=== PATIENT | female | born 1970 ===

== ENCOUNTER 2019-06-25 14:46 | Inpatient (IN) | payer OTHER ==
[~2019-06-25] VITALS: Ht 170.2 cm; Wt 54.4 kg
[2019-06-25 16:30] VITALS: BP 114/74
[2019-06-25] MEDS ORDERED: TRAZ-184 PO (16:38)
[2019-06-25] MEDS ORDERED: ONDA-104 PO (16:38)
[2019-06-25] MEDS ORDERED: HYDR-3290 PO (16:38)
[2019-06-25] MEDS ORDERED: LOPERAMIDE HCL 2 MG CAPSULE PO PRN (17:30)
[2019-06-25] MEDS ORDERED: NICOTINE 14 MG/24 HOUR PATCH TD PRN (17:30)
[2019-06-25] MEDS ORDERED: CloNIDine HCL 0.1 MG TABLET PO PRN (17:30)
[2019-06-25] MEDS ORDERED: MAG HYDROX/AL HYDROX/SIMETH ES 30 ML SUSPENSION UDCUP PO PRN (17:30)
[2019-06-25] MEDS ORDERED: MAGNESIUM HYDROXIDE SUSPENSION 30 ML UDCUP PO PRN (17:30)
[2019-06-25] MEDS ORDERED: PETROLATUM,WHITE 28 GM JELLY TP PRN (17:30)
[2019-06-25] MEDS ORDERED: IBUPROFEN 400 MG TABLET PO PRN (17:30)
[2019-06-25] MEDS ORDERED: ACETAMINOPHEN 325 MG TABLET PO PRN (17:30)
[2019-06-25] MEDS ORDERED: GuaiFENesin/D-METHORPHAN [SUGAR-FREE] 200-20MG/10 ML SYRUP UDCUP PO PRN (17:30)
[2019-06-25] MEDS ORDERED: ALBUTEROL SULFATE HFA 90 MCG/PUFF 8 GM INHALER IH PRN (17:30)
[2019-06-25 17:38] VITALS: BP 118/72
[2019-06-25] MEDS ORDERED: *PATIENT'S OWN MED [ENTER DRUG, DOSE, FREQUENCY IN COMMENTS] CLINICAL ONE (19:45)
[2019-06-25] MEDS: LORazepam 2 MG TABLET PO PRN (19:57)
[2019-06-25] MEDS ORDERED: ETHINYL ESTRADIOL PO ONE (20:00)
[2019-06-25] MEDS ORDERED: NORETHINDRONE PO ONE (20:00)
[2019-06-25 20:28] VITALS: BP 117/64
[2019-06-25] MEDS: HYDROCODONE/ACETAMINOPHEN 5-325 MG TABLET PO PRN (20:28)
[2019-06-25] MEDS: MELOXICAM 7.5 MG TABLET PO SCH (20:55)
[2019-06-25] MEDS ORDERED: GABAPENTIN 300 MG CAPSULE PO SCH (21:00)
[2019-06-26 05:06] VITALS: BP 103/60
[2019-06-26 08:02] LABS: BASOPHILS % (AUTO) 0.4 % (0.0-2.0); HEMATOCRIT 36.3 % (36-46); HEMOGLOBIN 12.1 g/dL (12.0-16.0); LYMPHOCYTES # (AUTO) 2.6 K/uL (1.0-4.8); LYMPHOCYTES % (AUTO) 35.3 % (22.0-44.0); MEAN CORPUSCULAR HEMOGLOBIN 32.8 pg (26.0-34.0); MEAN CORPUSCULAR HGB CONC 33.3 G/dL (31.0-37.0); MEAN CORPUSCULAR VOLUME 99 fL (80-100); MONOCYTES # (AUTO) 0.5 K/uL (0.1-1.0); MONOCYTES % (AUTO) 6.6 % (2.0-9.0); NEUTROPHILS % (AUTO) 54.7 % (40.0-70.0); PLATELET COUNT (AUTO) 240 K/uL (150-450); RED BLOOD CELL COUNT(AUTO) 3.68 MIL/uL (4.00-5.20); RED CELL DISTRIBUTION WIDTH 14.5 % (11.5-14.5)
[2019-06-26 08:18] LABS: APPEARANCE,URINE CLEAR (CLEAR); BILIRUBIN,URINE NEGATIVE (NEGATIVE); GLUCOSE, URINE (UA) NEGATIVE (NEGATIVE); KETONES,URINE NEGATIVE (NEGATIVE); LEUKOCYTE ESTERASE ,URINE NEGATIVE (NEGATIVE); NITRATE,URINE NEGATIVE (NEGATIVE); OCCULT BLOOD,URINE NEGATIVE (NEGATIVE); PH,URINE 5.5 (5.0-8.0); PROTEIN,URINE NEGATIVE (NEGATIVE); UROBILINOGEN,URINE 0.2 mg/dL (<=1.0)
[2019-06-26 08:26] LABS: AMPHET/METH SCREEN,URINE NEGATIVE (NEGATIVE); BARBITURATE SCREEN, URINE NEGATIVE (NEGATIVE); BENZODIAZEPINES SCREEN,URINE NEGATIVE (NEGATIVE); CANNABINOID SCREEN,URINE NEGATIVE (NEGATIVE); COCAINE SCREEN,URINE NEGATIVE (NEGATIVE); METHADONE SCREEN, URINE NEGATIVE (NEGATIVE); OPIATE SCREEN,URINE POSITIVE (NEGATIVE); PHENCYCLIDINE SCREEN,URINE NEGATIVE (NEGATIVE)
[2019-06-26 08:42] VITALS: BP 100/62
[2019-06-26 08:50] LABS: ALANINE AMINOTRANSFERASE 18 U/L (12-78); ALBUMIN 2.8 g/dL (3.4-5.0); ALKALINE PHOSPHATASE 34 U/L (46-116); ANION GAP 7 mmol/L (8-16); ASPARTATE AMINOTRANSFERASE 16 U/L (15-37); BILIRUBIN,TOTAL 0.5 mg/dL (0.1-1.0); CARBON DIOXIDE 25 mmol/L (22-29); CHLORIDE 106 mmol/L (98-107); CHOL/HDL RATIO 1.8 (3.9-5.7); CHOLESTEROL 146 mg/dL (131-200); CREATININE 0.75 mg/dL (0.60-1.30); FREE T4 (FREE THYROXINE) 1.19 ng/dL (0.76-1.46); GLOMERULAR FILTR. RATE CALC > 60 mL/min (>60); GLUCOSE,RANDOM 87 mg/dL (70-110); HCG,QUANTITATIVE < 1 mIU/mL (0-6); HDL CHOLESTEROL 82 mg/dL (40-60); LDL CHOL (CALC.) 48 mg/dL (0-130); POTASSIUM 3.2 mmol/L (3.5-5.1); SODIUM SERUM 138 mmol/L (136-145); THYROID STIMULATING HORMONE 1.58 uIU/mL (0.36-3.74); TOTAL PROTEIN, SERUM 5.7 g/dL (6.4-8.2); TRIGLYCERIDES 78 mg/dL (15-150); UREA NITROGEN, BLOOD 14 mg/dL (7-18)
[2019-06-26] MEDS ORDERED: NORETHINDRONE PO SCH (09:00)
[2019-06-26] MEDS ORDERED: ETHINYL ESTRADIOL PO SCH (09:00)
[2019-06-26] MEDS: HYDROCODONE/ACETAMINOPHEN 5-325 MG TABLET PO PRN ×2 (09:07→16:54)
[2019-06-26] MEDS: MELOXICAM 7.5 MG TABLET PO SCH (09:08)
[2019-06-26] MEDS: LORazepam 2 MG TABLET PO PRN ×3 (09:11→20:30)
[2019-06-26] MEDS: GABAPENTIN 300 MG CAPSULE PO SCH ×2 (12:38→16:54)
[2019-06-26 16:22] VITALS: BP 113/71
[2019-06-26] MEDS: ONDANSETRON HCL 4 MG TABLET PO PRN (18:02)
[2019-06-26] MEDS: TraZODone HCL 100 MG TABLET PO SCH (20:30)
[2019-06-26] MEDS: NON FORMULARY MEDICATION - TABLET PO SCH (20:30)
[2019-06-26] MEDS ORDERED: POTASSIUM CHLORIDE 20 MEQ ER TABLET PO ONE (20:30)
[2019-06-26] MEDS: ZOLPIDEM TARTRATE 10 MG TABLET PO PRN (21:31)
[2019-06-26] MEDS: DOCUSATE SODIUM 100 MG CAPSULE PO PRN (21:32)
[2019-06-27 05:08] VITALS: BP 103/69
[2019-06-27] MEDS: LORazepam 2 MG TABLET PO PRN ×3 (08:03→19:15)
[2019-06-27] MEDS: MELOXICAM 7.5 MG TABLET PO SCH (08:04)
[2019-06-27] MEDS: HYDROCODONE/ACETAMINOPHEN 5-325 MG TABLET PO PRN ×2 (08:04→21:20)
[2019-06-27] MEDS: GABAPENTIN 300 MG CAPSULE PO SCH ×3 (08:04→16:32)
[2019-06-27 08:17] LABS: BASOPHILS % (AUTO) 0.6 % (0.0-2.0); EOSINOPHILS % (AUTO) 3.7 % (1.0-6.0); LYMPHOCYTES # (AUTO) 2.4 K/uL (1.0-4.8); LYMPHOCYTES % (AUTO) 41.8 % (22.0-44.0); MEAN CORPUSCULAR HEMOGLOBIN 32.8 pg (26.0-34.0); MEAN CORPUSCULAR HGB CONC 33.4 G/dL (31.0-37.0); MEAN CORPUSCULAR VOLUME 98 fL (80-100); MONOCYTES # (AUTO) 0.4 K/uL (0.1-1.0); MONOCYTES % (AUTO) 6.5 % (2.0-9.0); NEUTROPHILS # (AUTO) 2.7 K/uL (1.8-7.7); NEUTROPHILS % (AUTO) 47.4 % (40.0-70.0); PLATELET COUNT (AUTO) 229 K/uL (150-450); RED BLOOD CELL COUNT(AUTO) 3.67 MIL/uL (4.00-5.20)
[2019-06-27 08:46] VITALS: BP 116/79
[2019-06-27] MEDS ORDERED: BISACODYL 5 MG EC TABLET PO PRN (12:00)
[2019-06-27 16:12] VITALS: BP 105/66
[2019-06-27 21:10] VITALS: BP_SYST 112; BP_SYST 118; BP_DIAS 66; BP_DIAS 68
[2019-06-27] MEDS: NON FORMULARY MEDICATION - TABLET PO SCH (21:16)
[2019-06-27] MEDS: TraZODone HCL 100 MG TABLET PO SCH (21:16)
[2019-06-27] MEDS: ONDANSETRON HCL 4 MG TABLET PO PRN (21:24)
[2019-06-27] MEDS: DOCUSATE SODIUM 100 MG CAPSULE PO PRN (21:31)
[2019-06-27] MEDS: ZOLPIDEM TARTRATE 10 MG TABLET PO PRN (21:31)
[2019-06-28] MEDS ORDERED: TRAZ150 PO (01:48)
[2019-06-28] MEDS ORDERED: MELO-107 PO ×2 (01:52→02:12)
[2019-06-28] MEDS ORDERED: TRAZ-257 PO (01:56)
[2019-06-28 05:14] VITALS: BP 103/64
[2019-06-28] MEDS ORDERED: GABA-531 PO (16:38)
== END 2019-06-28 05:40 | disposition home or self-care (01) | DRG 881 ==
LOC: B3A 16:03 → B2S 17:34
PROVIDERS: ADMIT Psychiatry & Neurology Psychiatry; ATTEND Psychiatry & Neurology Child & Adolescent Psychiatry
DX: F32.9 Major depressive disorder, single episode, unspecified (principal); E87.6 Hypokalemia; F10.129 Alcohol abuse with intoxication, unspecified; F19.10 Other psychoactive substance abuse, uncomplicated; F41.0 Panic disorder [episodic paroxysmal anxiety]; F43.10 Post-traumatic stress disorder, unspecified; F41.9 Anxiety disorder, unspecified; Z91.5 Personal history of self-harm
CPT/HCPCS: 74019; 80307; 83036; 84132; 84439; 84443; 87081; G0480; Q0162